=== PATIENT | female | born 1980 ===

== ENCOUNTER 2019-12-31 18:47 | Inpatient (IN) ==
[2019-12-31] MEDS ORDERED: haloperidoL 5 MG TABLET PO PRN (19:39)
[2019-12-31] MEDS ORDERED: Mag Hydrox/Al Hydrox/Simeth 30 ML UDC PO PRN (19:39)
[2019-12-31] MEDS ORDERED: *HR* LORazepam 1 MG TABLET PO PRN (19:39)
[2019-12-31] MEDS ORDERED: Haloperidol Lactate 5 MG/ML VIAL IM PRN (19:39)
[2019-12-31] MEDS ORDERED: *HR* LORazepam 2 MG/ML VIAL IM PRN (19:39)
[2019-12-31] MEDS ORDERED: MOM Conc 10 ML UD.LIQ PO PRN (19:39)
[2020-01-01] MEDS: Nicotine 2 MG GUM BC PRN ×2 (08:56→19:21)
[2020-01-01] MEDS ORDERED: cloNIDine HCL 0.1 MG TABLET PO PRN (11:58)
[2020-01-01] MEDS ORDERED: Baclofen 10 MG TABLET PO PRN (12:00)
[2020-01-01] MEDS: risperiDONE 1 MG TABLET PO SCH ×2 (12:36→20:38)
[2020-01-01] MEDS: traZODone 50 MG TABLET PO PRN (20:40)
[2020-01-02] MEDS: hydrOXYzine pamoate 25 MG CAPSULE PO PRN ×2 (04:23→20:17)
[2020-01-02 06:36] LABS: Chol/HDL Ratio 3.3 (0-4.9)
[2020-01-02 06:49] LABS: Thyroid Stimulating Hormone 2.042 mcIU/mL (0.340-5.600)
[2020-01-02] MEDS: risperiDONE 1 MG TABLET PO SCH ×2 (08:46→20:17)
[2020-01-02 09:27] LABS: Estimated Average Glucose 97 mg/dl
[2020-01-02] MEDS: Nicotine 21 MG PATCH.TD24 TD SCH (17:40)
[2020-01-02] MEDS: Acetaminophen 325 MG TABLET PO PRN (20:16)
[2020-01-02] MEDS: traZODone 50 MG TABLET PO PRN (20:17)
[2020-01-03] MEDS: Nicotine 21 MG PATCH.TD24 TD SCH (09:19)
[2020-01-03] MEDS: risperiDONE 1 MG TABLET PO SCH (09:19)
[2020-01-03 11:46] LABS: Bilirubin,Urine Negative (Negative); Blood,Urine Large (Negative); Glucose,Urine (UA) Normal (Normal); Ketones,Urine Negative (Negative); Leukocyte Esterase,Urine Small (Negative); Nitrite,Urine Negative (Negative); Protein,Urine 100 mg/dL (Neg-Trace); Specific Gravity,Urine 1.024 (1.010-1.025); Urobilinogen,Urine Normal (Normal)
[2020-01-03 11:47] LABS: Clarity,Urine Cloudy (Clear); Color,Urine Red (Yellow)
[2020-01-03] MEDS: traZODone 50 MG TABLET PO PRN (20:18)
[2020-01-03] MEDS: Acetaminophen 325 MG TABLET PO PRN (20:19)
[2020-01-03] MEDS: hydrOXYzine pamoate 25 MG CAPSULE PO PRN (20:19)
[2020-01-03] MEDS ORDERED: risperiDONE 1 MG TABLET PO SCH (21:00)
[2020-01-04] MEDS ORDERED: risperiDONE 1 MG TABLET PO SCH (09:00)
[2020-01-04] MEDS: Nicotine 21 MG PATCH.TD24 TD SCH (09:12)
[2020-01-04] MEDS: traZODone 50 MG TABLET PO PRN (20:35)
[2020-01-04] MEDS: hydrOXYzine pamoate 25 MG CAPSULE PO PRN (20:35)
[2020-01-04] MEDS: risperiDONE 1 MG TABLET PO SCH (20:35)
[2020-01-04] MEDS: Acetaminophen 325 MG TABLET PO PRN (21:59)
[2020-01-05] MEDS: risperiDONE 1 MG TABLET PO SCH (08:48)
[2020-01-05] MEDS: Nicotine 21 MG PATCH.TD24 TD SCH (08:49)
[2020-01-05] MEDS: Acetaminophen 325 MG TABLET PO PRN (17:49)
[2020-01-05] MEDS: traZODone 50 MG TABLET PO PRN (20:44)
[2020-01-05] MEDS: hydrOXYzine pamoate 25 MG CAPSULE PO PRN (20:45)
[2020-01-06] MEDS: Acetaminophen 325 MG TABLET PO PRN (05:46)
[2020-01-06] MEDS: ARIPiprazole 10 MG TABLET PO SCH (08:54)
[2020-01-06] MEDS: Nicotine 21 MG PATCH.TD24 TD SCH (08:54)
[2020-01-06] MEDS: traZODone 50 MG TABLET PO PRN (20:09)
[2020-01-07] MEDS: hydrOXYzine pamoate 25 MG CAPSULE PO PRN ×2 (00:12→20:38)
[2020-01-07] MEDS: ARIPiprazole 10 MG TABLET PO SCH (08:20)
[2020-01-07] MEDS: Nicotine 21 MG PATCH.TD24 TD SCH (08:21)
[2020-01-07] MEDS ORDERED: ARIPiprazole 5 MG TABLET PO SCH (09:30)
[2020-01-07] MEDS: Acetaminophen 325 MG TABLET PO PRN (16:30)
[2020-01-07] MEDS: traZODone 50 MG TABLET PO PRN (20:36)
[2020-01-08] MEDS: ARIPiprazole 10 MG TABLET PO SCH (09:21)
[2020-01-08] MEDS: Nicotine 21 MG PATCH.TD24 TD SCH (09:22)
[2020-01-08] MEDS: Acetaminophen 325 MG TABLET PO PRN (14:03)
[2020-01-08] MEDS ORDERED: Ibuprofen 600 MG TABLET PO ONE (14:43)
[2020-01-08] MEDS: BuPROPion SR (12 HR) 100 MG TABLET PO SCH (20:32)
[2020-01-08] MEDS: hydrOXYzine pamoate 25 MG CAPSULE PO PRN (20:32)
[2020-01-08] MEDS: traZODone 50 MG TABLET PO PRN (20:33)
[2020-01-09] MEDS: ARIPiprazole 10 MG TABLET PO SCH (08:42)
[2020-01-09] MEDS: BuPROPion SR (12 HR) 100 MG TABLET PO SCH ×2 (08:42→20:39)
[2020-01-09] MEDS: Nicotine 21 MG PATCH.TD24 TD SCH (08:43)
[2020-01-09] MEDS: Ibuprofen 400 MG TABLET PO PRN (11:06)
[2020-01-09] MEDS: hydrOXYzine pamoate 25 MG CAPSULE PO PRN (20:39)
[2020-01-09] MEDS: traZODone 50 MG TABLET PO PRN (20:39)
[2020-01-10] MEDS: ARIPiprazole 10 MG TABLET PO SCH (09:21)
[2020-01-10] MEDS: BuPROPion SR (12 HR) 100 MG TABLET PO SCH ×2 (09:22→20:07)
[2020-01-10] MEDS: Nicotine 21 MG PATCH.TD24 TD SCH (09:22)
[2020-01-10] MEDS: Ibuprofen 400 MG TABLET PO PRN ×2 (14:07→20:07)
[2020-01-10] MEDS: traZODone 50 MG TABLET PO PRN (20:08)
[2020-01-10] MEDS: hydrOXYzine pamoate 25 MG CAPSULE PO PRN (20:08)
[2020-01-11] MEDS: Nicotine 21 MG PATCH.TD24 TD SCH (09:39)
[2020-01-11] MEDS: BuPROPion SR (12 HR) 100 MG TABLET PO SCH ×2 (09:39→20:20)
[2020-01-11] MEDS: ARIPiprazole 10 MG TABLET PO SCH (09:39)
[2020-01-11] MEDS: traZODone 50 MG TABLET PO PRN (20:20)
[2020-01-11] MEDS: hydrOXYzine pamoate 25 MG CAPSULE PO PRN (20:20)
[2020-01-12] MEDS: BuPROPion SR (12 HR) 100 MG TABLET PO SCH ×2 (09:34→21:01)
[2020-01-12] MEDS: ARIPiprazole 10 MG TABLET PO SCH (09:35)
[2020-01-12] MEDS: Nicotine 21 MG PATCH.TD24 TD SCH (09:35)
[2020-01-12] MEDS: hydrOXYzine pamoate 25 MG CAPSULE PO PRN (21:02)
[2020-01-12] MEDS: traZODone 50 MG TABLET PO PRN (21:02)
[2020-01-13] MEDS: ARIPiprazole 10 MG TABLET PO SCH (08:29)
[2020-01-13] MEDS: BuPROPion SR (12 HR) 100 MG TABLET PO SCH (08:29)
[2020-01-13] MEDS: Nicotine 21 MG PATCH.TD24 TD SCH (08:29)
[2020-01-13 09:48] VITALS: BP 104/73
== END 2020-01-13 17:30 | disposition home or self-care (01) | DRG 885 ==
LOC: SUATTDRO 18:47 → 1ANU 18:47
PROVIDERS: ADMIT Psychiatry & Neurology Psychiatry; ATTEND Psychiatry & Neurology Psychiatry